=== PATIENT | female | born 2000 | race Two or more races ===

== ENCOUNTER 2024-06-15 15:02 | Outpatient (CLI) | payer OTHER, SELFPAY | END 2024-06-15 15:03 | disposition home or self-care (01) | LOC: AMB 06-18 10:49 | PROVIDERS: Visit Provider Family Medicine | DX: S39.91XA Unspecified injury of abdomen, initial encounter (principal); V49.59XA Passenger injured in collision with other motor vehicles in traffic accident, initial encounter; Y92.411 Interstate highway as the place of occurrence of the external cause | CPT/HCPCS: A0425; A0427 ==